=== PATIENT | female | born 1980 | race Caucasian/White ===

== ENCOUNTER 2017-10-11 14:42 | Emergency (ER) | payer SELFPAY ==
[2017-10-11 14:47] VITALS: BMI 32.5
--- NOTE | 2017-10-11 15:35 | DR.CP ---
HPI - Time Seen Time seen: 15:30 - PCP Primary Care Physician: BOWEN VASQUEZ - HPI Comment HPI Comment: WOKE UP FROM SLEEP WITH INTERMITTENT SHARP CHEST PAIN. ASSOCIATED SOB. NO FEVER. - Complaint Chief Complaint Doctor Comments: CHEST PAIN. Chief Complaint:: PT C/O OF AROUND 0900 SHE WAS WOKEN UP BY SHARP INTERMITTANT CHEST PAINS PT C/O SOB, PT TOOK A XANAX AND IT DID NOT HELP.. BR - Reviewed Nurses Notes Review: Yes - Source History Provided: Patient - Mode of Arrival Mode of Arrival: Ambulatory - Timing Onset of Chief Complaint: 10/11/17 Came on: Suddenly - Duration Duration: Constant Duration: Minutes - Location Chest Pain Radiation Location: None - Context Onset: While Asleep PE Risk Factors: None History of: Similar pain in the past Prehospital Care: None - Quality Quality: Sharp - Severity Severity: Moderate - Modifying Factors Worsens: Nothing Impoves: Nothing - Associated Signs and Symptoms Associated Signs and Symptoms: Shortness of Breath PMH - PMH Past Medical History: Yes Past Medical History: Depression Past Surgical History: Yes Surgical History: Appendectomy, Cholecystectomy, Other Past Surgical History Comment: C-SECTIONS, - Family History History of Family Medical Conditions: Yes Family Medical History: Cancer - Social History Does patient currently use any type of tobacco product: Yes Have you used tobacco products in the last 12 months: Yes Type of Tobacco Use: Cigarettes How many years tobacco product used: 24 Does any household member use tobacco: No Alcohol Use: None Do you use any recreational Drugs:: No Lives With: Family Lives Where: Home - infectious screening In the last 2 months have you had wt loss of >10#?: NO Have you had fever, night sweats or hemotysis?: No Have you traveled outside the country in the last 6 months?: No Isolation: Standard ROS - Review of Systems Constitutional: Weakness, Fatigue. negative: Chills, Fever Eyes: No Symptoms Reported. negative: Eye Pain, Discharge ENTM: No Symptoms Reported. negative: Ear Pain, Nose Discharge, Nose Congestion , Throat Pain Respiratoy: Short of Breath. negative: Productive Cough, Non-Productive Cough, Wheezing, Hemoptysis Cardiovascular: Chest Pain. negative: Edema Gastrointestinal/Abdominal: No Symptoms Reported. negative: Abdominal Pain, Constipation, Diarrhea, Nausea, Vomiting Genitourinary: No Symptoms Reported. negative: Dysuria, Frequency, Hematuria Neurological: Weakness, Dizziness. negative: Headache Musculoskeletal: No Symptoms Reported Integumentary: No Symptoms Reported Hematologic/Lymphatic: No Symptoms Reported Endocrine: No Symptoms Reported All Other Systems: Reviewed and Negative PE - Vitals Vitals: Temperature 97.4 F Pulse Rate [Right Brachial] 54 Pulse Rate 82 Respiratory Rate 20 Blood Pressure [Left Arm] 116/56 Blood Pressure 118/67 O2 Sat by Pulse Oximetry 99 - General Limitations: No Limitations General Appearance: Alert - Head Head Exam: Normal Inspection - Eyes Eye exam: Normal Appearance - ENT ENT Exam: Normal External Ear Exam - Chest Chest Inspection: Symmetric Chest Wall Rise - Respiratory Respiratory Exam: Normal Lung Sounds Bilat Respiratory Exam: Bilateral Clear to Auscultation - Cardiovascular Cardiovascular Exam: Regular Rate, Normal Rhythm, Normal Heart Sounds Pulse: Normal, Radial, Femoral Edema: Normal - Abdominal Exam Abdominal Exam: Normal Bowel Sounds, Soft. negative: Tenderness - Extremities Extremities Exam: Normal Inspection - Back Back Exam: Normal Inspection - Neurologic Neurological Exam: Alert, Oriented X3 - Psychiatric Psychiatric Exam: Normal Affect, Normal Mood - Skin Skin Exam: Normal Color MDM - Additional Information Additional Information Obtained From: Family - Differential Diagnosis Differential Diagnosis: Myocardial Infarction, Pericarditis, Pleuritis, Pancreatitis, Pneumonia, Pneumothorax, Pulmonary Embolus Course - Treatment Treatment: REPORT DISCUSS WITH PATIENT. - Education/Counseling Education/Counseling: Patient, Education Educated On: Diagnosis, Needs for Follow Up ROR - Labs Reviewed Laboratory Results Reviewed?: Yes Result Diagrams: 10/11/17 15:43 10/11/17 15:43 Laboratory: WBC 7.0 X10^3/uL (3.6-10.0) 10/11/17 15:43 RBC 4.19 X10^6/uL (3.5-5.4) 10/11/17 15:43 Hgb 13.0 g/dL (12.0-16.0) 10/11/17 15:43 Hct 37.4 % (36.0-47.0) 10/11/17 15:43 MCV 89.3 fL (80.0-100.0) 10/11/17 15:43 MCH 30.9 pg (27.0-34.0) 10/11/17 15:43 MCHC 34.7 g/dL (33.0-35.0) 10/11/17 15:43 RDW 14.2 % (11.6-16.5) 10/11/17 15:43 Plt Count 203 X10^3/uL (150.0-450.0) 10/11/17 15:43 MPV 8.4 fL (7.4-11.0) 10/11/17 15:43 Neut % (Auto) 53.0 % (42.0-75.0) 10/11/17 15:43 Lymph % (Auto) 37.8 % (21.0-51.0) 10/11/17 15:43 [place] % (Auto) 6.6 % (0.0-13.0) 10/11/17 15:43 Eos % (Auto) 1.4 % (0.9-2.9) 10/11/17 15:43 Baso % (Auto) 1.2 % (0.2-1.0) H 10/11/17 15:43 Neut # (Auto) 3.7 x10^3/uL (2.2-4.8) 10/11/17 15:43 Lymph # (Auto) 2.6 X10^3/uL (1.3-2.9) 10/11/17 15:43 [place] # (Auto) 0.5 x10^3/uL (0.3-0.8) 10/11/17 15:43 Eos # (Auto) 0.1 x10^3/uL (0.0-0.2) 10/11/17 15:43 Baso # (Auto) 0.1 X10^3/uL (0.0-0.1) 10/11/17 15:43 Absolute Nucleated RBC 0.0 /100WBC 10/11/17 15:43 D-Dimer 114 ng/mL (0-400) 10/11/17 15:43 Sodium 143 mmol/L (136-145) 10/11/17 15:43 Corrected Sodium TNP 10/11/17 15:43 Potassium 3.9 mmol/L (3.5-5.1) 10/11/17 15:43 Chloride 108 mmol/L (98-107) H 10/11/17 15:43 Carbon Dioxide 25.8 mmol/L (21-32) 10/11/17 15:43 BUN 17 mg/dL (7-18) 10/11/17 15:43 Creatinine 0.81 mg/dL (0.55-1.02) 10/11/17 15:43 Est GFR (MDRD) Af Amer > 60 (>60) 10/11/17 15:43 Est GFR (MDRD) Non-Af > 60 (>60) 10/11/17 15:43 Glucose 73 mg/dL (65-99) 10/11/17 15:43 Calcium 8.2 mg/dL (8.5-10.1) L 10/11/17 15:43 Corrected Calcium TNP 10/11/17 15:43 Total Bilirubin 0.50 mg/dL (0.2-1.0) 10/11/17 15:43 AST 15 Units/L (15-37) 10/11/17 15:43 ALT 31 Units/L (12-78) 10/11/17 15:43 Alkaline Phosphatase 52 Units/L (46-116) 10/11/17 15:43 Creatine Kinase 67 Units/L (26-192) 10/11/17 15:43 CK-MB (CK-2) < 1.0 ng/mL (0-4.0) 10/11/17 15:43 CK/CKMB % Calc 1.5 % (<4) 10/11/17 15:43 Troponin I < 0.02 ng/mL (0-1.5) 10/11/17 15:43 Total Protein 6.9 g/dL (6.4-8.2) 10/11/17 15:43 Albumin 3.5 g/dL (3.4-5.0) 10/11/17 15:43 Globulin 3.4 g/dL (2.5-4.5) 10/11/17 15:43 Albumin/Globulin Ratio 1.0 Ratio (1.1-2.1) L 10/11/17 15:43 H. pylori IgG Antibody Positive (NEGATIVE) A 10/11/17 15:43 - EKG Rhythm: NSR (EKG NOTED) - Diagnosis Discharge Problem: Chest pain, Helicobacter pylori ab+ - Discharge Plan Disposition: HOME, SELF-CARE Condition: Stable - Follow ups/Referrals Follow ups/Referrals: JENNIE WISEMAN [Primary Care Provider] - 10/12/17 - Instructions Instructions: Helicobacter Pylori Antibodies Test, Chest Pain Observation
[2017-10-11 15:52] LABS: BASOPHILS # (AUTO) 0.1 X10^3/uL (0.0-0.1); BASOPHILS % (AUTO) 1.2 % (0.2-1.0); EOSINOPHILS # (AUTO) 0.1 x10^3/uL (0.0-0.2); EOSINOPHILS % (AUTO) 1.4 % (0.9-2.9); HEMATOCRIT 37.4 % (36.0-47.0); LYMPHOCYTES # (AUTO) 2.6 X10^3/uL (1.3-2.9); LYMPHOCYTES % (AUTO) 37.8 % (21.0-51.0); MEAN CORPUSCULAR HEMOGLOBIN 30.9 pg (27.0-34.0); MEAN CORPUSCULAR HGB CONC 34.7 g/dL (33.0-35.0); MEAN CORPUSCULAR VOLUME 89.3 fL (80.0-100.0); MEAN PLATELET VOLUME 8.4 fL (7.4-11.0); MONOCYTES # (AUTO) 0.5 x10^3/uL (0.3-0.8); MONOCYTES % (AUTO) 6.6 % (0.0-13.0); NEUTROPHILS # (AUTO) 3.7 x10^3/uL (2.2-4.8); PLATELET COUNT 203 X10^3/uL (150.0-450.0); RED BLOOD COUNT 4.19 X10^6/uL (3.5-5.4); RED CELL DISTRIBUTION WIDTH 14.2 % (11.6-16.5)
[2017-10-11 16:09] LABS: BLOOD UREA NITROGEN 17 mg/dL (7-18); CALCIUM 8.2 mg/dL (8.5-10.1); CARBON DIOXIDE 25.8 mmol/L (21-32); CHLORIDE 108 mmol/L (98-107); CREATININE 0.81 mg/dL (0.55-1.02); SODIUM 143 mmol/L (136-145); TROPONIN I < 0.02 ng/mL (0-1.5); eGFR BLACK RACES > 60 (>60); eGFR NON BLACK RACES > 60 (>60)
[2017-10-11 16:13] LABS: ALANINE AMINOTRANSFERASE 31 Units/L (12-78); ALBUMIN 3.5 g/dL (3.4-5.0); ALKALINE PHOSPHATASE 52 Units/L (46-116); ASPARTATE AMINO TRANSFERASE 15 Units/L (15-37); CREATINE KINASE 67 Units/L (26-192); CREATINE KINASE MB < 1.0 ng/mL (0-4.0); TOTAL PROTEIN 6.9 g/dL (6.4-8.2)
[2017-10-11 16:15] LABS: CKMB % 1.5 % (<4)
[2017-10-11] MEDS ORDERED: ZANTAC PO ONE (17:12)
[2017-10-11] MEDS ORDERED: LEVSIN/MAALOX/LIDOC VISC PO ONE (17:12)
[2017-10-11] MEDS ORDERED: LEVSIN/MAALOX/LIDOC VISC ONE (17:13)
[2017-10-11] MEDS ORDERED: PEPCID TAB 20 MG ONE (17:14)
[2017-10-11 17:31] VITALS: BP 116/56
[2017-10-12] MEDS ORDERED: PEPCID TAB 20 MG PO SCH (09:00)
== END 2017-10-11 17:33 | disposition home or self-care (01) ==
LOC: ER 14:55
DX: R07.89 Other chest pain (principal); B96.81 Helicobacter pylori [H. pylori] as the cause of diseases classified elsewhere
CPT/HCPCS: 36415; 80053; 82550; 82553; 84484; 85025; 85378; 86677; 93005; 93010; 99282; 99283; 99284

== ENCOUNTER 2017-11-26 17:54 | Emergency (ER) | payer SELFPAY ==
[2017-11-26 18:00] VITALS: BP 99/59; BMI 27.3
== END 2017-11-26 19:02 | disposition left against medical advice (07) ==
LOC: ER 18:05
DX: R51 Headache (principal)
CPT/HCPCS: 99281